=== PATIENT | female | born 1960 | race Caucasian/White ===

== ENCOUNTER 2017-05-25 20:21 | Inpatient (IN) | payer BC ==
[~2017-05-25] VITALS: Ht 162.6 cm; Wt 73.9 kg
[2017-05-25] MEDS ORDERED: NITROGLYCERIN OINT 1GM/INCH UDPKT TD STA (21:12)
[2017-05-25 21:26] LABS: BASOPHILS % 0.5 % (0.0-2.0); EOSINOPHILS % 1.6 % (0.0-5.0); HEMATOCRIT. 38.4 % (36.0-48.0); HEMOGLOBIN. 13.3 g/dL (12.0-16.0); MEAN CORPUSCULAR HEMOGLOBIN 30.1 pg (28.0-32.0); MEAN PLATELET VOLUME 8.3 fl (7.4-10.4); MONOCYTES % 6.9 % (2.0-8.0); PLATELET 291 x1000/uL (130-400); RED BLOOD CELL COUNT 4.42 mill/uL (4.2-5.4); RED CELL DISTRIBUTION WIDTH 14.3 % (11.6-14.6)
[2017-05-25 21:36] LABS: CHLORIDE 99 mEq/L (98-107)
[2017-05-25 21:37] LABS: D-DIMER 0.26 mg/L FEU (<0.50); PARTIAL THROMBOPLASTIN TIME 25.4 sec (23.4-31.0); PROTHROMBIN TIME 10.4 sec (9.4-11.6)
[2017-05-25] MEDS ORDERED: SODIUM CHLORIDE 0.9% 1,000 ML IV ONE (22:35)
[2017-05-25] MEDS ORDERED: INSULIN REGULAR (HUMULIN R) 300UNITS/3ML SUBCUT ONE (22:45)
[2017-05-25] MEDS ORDERED: LORAZEPAM 2MG/ML CPJ IV PRN (23:45)
[2017-05-25] MEDS ORDERED: ONDANSETRON HCL 4MG/2ML VIAL IV PRN (23:45)
[2017-05-25] MEDS ORDERED: ENOXAPARIN 40MG/0.4ML SYR SUBCUT SCH (23:45)
[2017-05-26 06:23] LABS: CREATINE KINASE 96 IU/L (26-192)
[2017-05-26] MEDS ORDERED: ACETAMINOPHEN 325MG TABLET PO PRN (09:50)
[2017-05-26] MEDS ORDERED: ACETAMINOPHEN 650MG SUPP PR PRN (09:50)
[2017-05-26 09:54] VITALS: BP 119/68
[2017-05-26] MEDS ORDERED: HYDROMORPHONE HCL/PF 2MG/ML CPJ IV PRN (10:07)
[2017-05-26] MEDS ORDERED: INSULIN LISPRO 100 UNITS/ML SUBCUT SCH (10:12)
[2017-05-26] MEDS ORDERED: DEXTROSE 50% WATER 50ML SYRINGE IV PRN (10:15)
[2017-05-26] MEDS ORDERED: ENOXAPARIN 40MG/0.4ML SYR SUBCUT SCH (10:15)
[2017-05-26] MEDS: BLOOD SUGAR DIAGNOSTIC STRIP TEST SCH ×2 (10:17→12:48)
[2017-05-26] MEDS ORDERED: ALOG1TAB8 PO (10:31)
[2017-05-26] MEDS ORDERED: LISI1TAB9 PO (10:33)
== END 2017-05-26 13:15 | disposition left against medical advice (07) | DRG 638 ==
LOC: ER 20:35 → 7WST 22:52 → EDBEDREQTM 22:54 → EDBEDREQ 22:54 → ENRESERV 05-26 07:10 → 7WST 05-26 09:57
PROVIDERS: ADMIT Internal Medicine Nephrology; ATTEND Internal Medicine Nephrology
DX: E11.65 Type 2 diabetes mellitus with hyperglycemia (principal); E44.1 Mild protein-calorie malnutrition; F17.200 Nicotine dependence, unspecified, uncomplicated; I10 Essential (primary) hypertension; R07.9 Chest pain, unspecified; Z53.21 Procedure and treatment not carried out due to patient leaving prior to being seen by health care provider; Z88.2 Allergy status to sulfonamides; Z68.28 Body mass index [BMI] 28.0-28.9, adult
CPT/HCPCS: 36415; 71045; 80053; 82550; 82553; 82962; 83690; 83880; 84484; 85025; 85379; 85610; 85730; 93005; 93306; 96360; 96372; 99285; J1815